=== PATIENT | female | born 1980 | race Hispanic/Latino ===

== ENCOUNTER 2023-05-11 11:11 | Day surgery (SDC) | payer OTHER, SELFPAY ==
[2023-05-10 12:34] VITALS: BMI 31.6
[2023-05-11] MEDS ORDERED: EPINEPHrine 1 MG/ML AMP ONE (12:02)
[2023-05-11] MEDS ORDERED: Lidocaine 1% (PF) 30 ML VIAL ONE (12:02)
[2023-05-11] MEDS ORDERED: Bupivacaine 0.25% HCL 30 ML VIAL ONE (12:02)
[2023-05-11] MEDS ORDERED: Sodium Chloride 0.9% 100 ML ONE (12:17)
[2023-05-11] MEDS ORDERED: CEFAZOLIN 2 GM VIAL ONE (12:17)
[2023-05-11] MEDS ORDERED: fentaNYL 50 mcg/mL 1 mL Vial ONE (12:21)
[2023-05-11] MEDS ORDERED: Midazolam HCl 2 mg/2 ml Vial ONE ×2 (12:21→12:55)
[2023-05-11] MEDS ORDERED: Lidocaine 2% 6 ML (Jelly) SYR ONE (12:41)
[2023-05-11 12:48] LABS: Anion Gap 15 mmol/L (10-20); BUN (Urea Nitrogen) 11 mg/dL (7.0-18.7); Calc. Creatinine Clearance 136 mL/min (70-130); Calcium 9.5 mg/dL (7.8-10.44); Carbon Dioxide 24 mmol/L (22-29); Chloride 104 mmol/L (98-107); Estimated GFR 107; Glucose 87 mg/dL (70-105); Sodium 139 mmol/L (136-145)
[2023-05-11 13:08] LABS: BHCG - Serum Negative (NEGATIVE); Pregs Control Background? CLEAR/WHITE (CLR/WHITE); Pregs Control Bar Appear? YES (CONTROL BAR)
[2023-05-11] MEDS ORDERED: PROPOFOL 200 MG/20 ML VIAL ONE (13:13)
[2023-05-11] MEDS ORDERED: Lidocaine 1% PF 5 ML VIAL ONE (13:13)
[2023-05-11] MEDS ORDERED: HYDROcodone/Acetaminophen 5/325 mg Tablet ONE (15:02)
== END 2023-05-11 15:20 | disposition home or self-care (01) ==
LOC: SDC 11:11
PROVIDERS: ATTEND Surgery Surgery of the Hand
PROC: 01N50ZZ Release Median Nerve, Open Approach (ICD-10-PCS; principal; 2023-05-11)
DX: G56.03 Carpal tunnel syndrome, bilateral upper limbs (principal)
CPT/HCPCS: 80048; 84703; 93005; 93010; J0171; J2001; J2250; J2704; J3010; J3490; S0020

== ENCOUNTER 2023-05-18 23:03 | Emergency (ER) | payer OTHER ==
[2023-05-18] MEDS ORDERED: levETIRAcetam 500 MG/5 ML VIAL ONE (23:08)
[2023-05-18 23:48] LABS: #Eosinphils 0.1 thou/uL (0.0-0.7); #Monocytes 0.5 thou/uL (0.11-0.59); #Neutrophils 2.8 thou/uL (1.40-6.50); %Basophils 0.6 % (0.0-1.0); %Eosinophils 0.9 % (0.0-10.0); %Lymphocytes 48.6 % (21.0-51.0); %Monocytes 7.5 % (0.0-10.0); %Neutrophils 42.1 % (42.0-75.0); Hemoglobin 13.9 g/dL (12.0-16.0); Mean Corpuscular HGB CONC 32.3 g/dL (32.0-36.0); Mean Corpuscular Hemoglobin 29.8 pg (27.0-31.0); Mean Corpuscular Volume 92.1 fl (78.0-98.0); Mean Platelet Volume 9.8 fL (7.4-10.4); Platelet Count 338 10x3/uL (130-400); RBC Distribution Width 14.4 % (11.5-14.5); Red Blood Cell (RBC) Count 4.67 mill/uL (4.20-5.40); White Blood Cell (WBC) Count 6.6 10x3/uL (4.8-10.8)
[2023-05-19 00:04] LABS: BHCG - Serum Negative (NEGATIVE); Pregs Control Background? CLEAR/WHITE (CLR/WHITE); Pregs Control Bar Appear? YES (CONTROL BAR)
[2023-05-19 00:14] LABS: Acetaminophen Less than 10 mcg/mL (10.0-30.0); Alcohol 232.3 mg/dL (Less than 10); Lipase 35 U/L (8-78); Magnesium 1.8 mg/dL (1.6-2.6); Salicylate Less than 8.0 mg/dL (15.0-30.0)
[2023-05-19 00:15] LABS: ALT (SGPT) 32 U/L (8-55); AST (SGOT) 30 U/L (5-34); Albumin 4.3 g/dL (3.5-5.0); Alkaline Phosphatase 89 U/L (40-110); Anion Gap 17 mmol/L (10-20); BUN (Urea Nitrogen) 8 mg/dL (7.0-18.7); Bilirubin, Total 0.2 mg/dL (0.2-1.2); CK (CPK) 82 U/L (29-168); Calc. Creatinine Clearance 0 mL/min (70-130); Calcium 9.1 mg/dL (7.8-10.44); Carbon Dioxide 18 mmol/L (22-29); Chloride 107 mmol/L (98-107); Estimated GFR 110; Globulin 3.7 g/dL (2.4-3.5); Glucose 84 mg/dL (70-105); Potassium 4.4 mmol/L (3.5-5.1); Sodium 138 mmol/L (136-145)
[2023-05-19 00:16] LABS: Troponin I 0.017 ng/mL (< 0.028)
== END 2023-05-19 08:19 | disposition home or self-care (01) ==
LOC: ERS 23:03
DX: F10.129 Alcohol abuse with intoxication, unspecified (principal); Y90.7 Blood alcohol level of 200-239 mg/100 ml
CPT/HCPCS: 36415; 70450; 71045; 80053; 80307; 82550; 83690; 83735; 84443; 84484; 84703; 85025; 93005; 96361; 96374; J1953